=== PATIENT | female | born 1990 | race Caucasian/White ===

== ENCOUNTER 2017-02-12 18:49 | Emergency (ER) | payer SELFPAY ==
[~2017-02-12] VITALS: Ht 167.6 cm; Wt 113.4 kg
[~2017-02-12 18:49] MED LIST: ALBUTEROL0.09 MG/A1 INH; AMOXIL 875 MG875 MG PO; IBUPROFEN800 MG PO; PERCOCET 325 MG1 TA2 PO; PREDNISONE 20MG20 MG PO; TESSALON PERLE100 MG PO
[2017-02-12 19:31] LABS: ABSOLUTE BASOPHIL COUNT 0.1 /CUMM (0.0-0.2); ABSOLUTE EOSINOPHIL COUNT 0.6 /CUMM (0.0-0.7); ABSOLUTE GRANULOCYTE CT 9.4 /CUMM (1.4-6.5); ABSOLUTE LYMPH COUNT 2.6 /CUMM (1.2-3.4); ABSOLUTE MONOCYTE COUNT 0.8 /CUMM (0.10-0.60); BASOPHIL % 0.9 % (0.0-2.0); EOSINOPHIL % 4.6 % (0-5); GRANULOCYTE % 69.6 % (42.2-75.2); HEMATOCRIT 38.5 % (37-47); MEAN CORPUSCULAR HGB 27.3 PG (27.0-31.0); MEAN CORPUSCULAR HGB CONC 33.2 G/DL (33.0-37.0); MEAN CORPUSCULAR VOLUME 82.1 FL (81.0-99.0); PLATELET COUNT 284 /CUMM (130-400); WHITE BLOOD CELL COUNT 13.5 /CUMM (4.8-10.8)
--- NOTE | 2017-02-12 20:04 | ED GI/GU/ABDOMINAL COMPLAINT ---
History of Present Illness General Chief Complaint: Abdominal Pain/Flank Pain Stated Complaint: LOWER ABD PAIN Source: patient Exam Limitations: no limitations Vital Signs & Intake/Output Vital Signs & Intake/Output ED Intake and Output 02/13 0000 02/12 1200 Intake Total 0 Output Total Balance 0 Intake, Oral 0 Patient 250 lb Weight Weight Reported by Patient Measurement Method Allergies Coded Allergies: NO KNOWN ALLERGIES (10/01/12) Reconcile Medications Ciprofloxacin HCl (Cipro) 500 MG TABLET 1 TAB PO BID PRN UTI Phenazopyridine HCl (Pyridium) 100 MG TABLET 1 TAB PO TID PRN DYSURIA PLEASE NOTE THAT YOUR URINE MAY CHANGE ORANGE Triage Note: C/O LOW PELVIC/ABD PAIN WITH BURNING CRAMPING WITH URINATION W +URGENCY SINCE FRIDAY. FEELS LIKE CRAMPING LIKE A PERIOD, LAST MENSES 02/03/17. +N/-V/-D. ALSO ENDORSING SPOTTING WHICH HAS NEVER HAPPENED FOR HER. DENIES VAGINAL DISCHARGE. ALSO REPORTS BILATERAL UPPER QUADRANT PAIN, ALSO INTERMITTENT CRAMPING IN NATURE. LAST BM FRIDAY AND DIARRHEA. WENT TO A Friday THAT HAD AN OPEN BAR, UNSURE IF RELATED. Triage Nurses Notes Reviewed? yes ? N Is pt currently ? No Duration: constant Timing: recent history Quality/Severity: burning Severity Numbers: 5 Location: suprapubic Radiation: no radiation, urethral HPI: Patient is 27-year-old female who presents emergency room with a 5 day history of increased frequency of urination dysuria hematuria and lower pelvic abdominal discomfort. Patient is able to tolerate by mouth. Denies any fever chills back pain vaginal bleeding or discharge. Last menstrual period was 2 weeks ago. Denies any pain with sexual intercourse. (EMILIO ABDALLA) Past History Travel History Traveled to Any past 21 day No Medical History Any Pertinent Medical History? none Neurological: NONE EENT: NONE Cardiovascular: NONE Respiratory: NONE Gastrointestinal: NONE Hepatic: NONE Renal: NONE Musculoskeletal: NONE Psychiatric: NONE Endocrine: NONE Blood Disorders: NONE Cancer(s): NONE Surgical History Surgical History: Psychosocial History What is your primary language [place]ian Tobacco Use: Current Daily Use Daily Tobacco Use Amount/Type: => 5 Cigarettes daily ETOH Use: occasional use Illicit Drug Use: marijuana Family History Hx Contributory? No (EMILIO ABDALLA) Review of Systems Review of Systems Constitutional: Reports: no symptoms. EENTM: Reports: no symptoms. Respiratory: Reports: no symptoms. Cardiovascular: Reports: no symptoms. GI: Reports: see HPI, abdominal pain. Genitourinary: Reports: see HPI. Musculoskeletal: Reports: no symptoms. Skin: Reports: no symptoms. Neurological/Psychological: Reports: no symptoms. Hematologic/Endocrine: Reports: no symptoms. Immunologic/Allergic: Reports: no symptoms. All Other Systems: Reviewed and Negative (EMILIO ABDALLA) Physical Exam Physical Exam General Appearance: no apparent distress, obese Gastrointestinal: normal bowel sounds, soft, SUPRAPUBIC POINT TENDERNESS, NO RLQ PAIN NO PERITONEAL SIGNS, NO REBOUND Comments: Well-developed well-nourished person in no acute distress HEENT: Normal EENT exam, Neck: Supple, no lymphadenopathy, normal range of motion without pain or tenderness Back: Nontender, no CVA tenderness. Cardiovascular: Regular rate and rhythms no murmurs rubs or gallops, normal JVP Respiratory: Chest nontender. No respiratory distress.breath sounds clear to auscultation bilaterally Extremity: No edema, no calf tenderness to palpation, normal and equal pulses. Neuro: Alert oriented x3, motor sensory normal, Skin: No appreciable rash on exposed skin, skin is warm and dry. Psych: Mood and affect is normal, memory and judgment is normal. Core Measures ACS in differential dx? No Severe Sepsis Present: No Septic Shock Present: No (EMILIO ABDALLA) Progress Differential Diagnosis: appendicitis, biliary colic, bowel obstruction, colon cancer, cholecystitis, diverticulitis, ectopic , endometritis, esophageal varices, gastritis, hepatitis, hernia, hemorrhoids, ischemic bowel, inflamm bowel dis, intrauterine , kidney stone, ovarian cyst, ovarian torsion, pancreatitis, PID/cervicitis, peptic ulcer, PUD/GERD, perforated viscous, SBO, threatened AB, UTI/pyelo Plan of Care: Orders Procedure Date/time Status Add-on Test (ER Only) 02/12 2127 Active CULTURE,URINE 02/13 2008 Active Patient on initial examination has no peritoneal signs no right lower quadrant PAIN and no concerned of appendicitis. Due to history of present illness and exam findings patient will be treated for concerns of urinary tract infection. Culture is pending no concern at this time a pyelonephritis NURSING STAFF ADDED ON URINE CX AFTER PT WAS DISCHARGED. (EMILIO ABDALLA) Initial ED EKG: none (EMILIO ABDALLA) Departure Departure Disposition: HOME OR SELF CARE Condition: Stable Clinical Impression Primary Impression: UTI (urinary tract infection) Referrals: Randal LEVIN MD (PCP/Family) Additional Instructions: As discussed begin the prescription of ciprofloxacin as directed for the full course and the prescription of Pyridium for pain with urination please note that this medication of Pyridium may change the color of her urine orange. If no better on Friday follow-up with her primary care doctor. If symptoms worsen or if you develop a new concerning symptom return to emergency room. Prescription is waiting at [facility] Departure Forms: Customer Survey General Discharge Information Prescriptions: Current Visit Scripts Phenazopyridine HCl (Pyridium) 1 TAB PO TID PRN DYSURIA #6 TAB PLEASE NOTE THAT YOUR URINE MAY CHANGE ORANGE Ciprofloxacin HCl (Cipro) 1 TAB PO BID PRN UTI #20 TAB (EMILIO ABDALLA) PA/TECHNICAL PROGRAM MANAGER Co-Sign Statement Statement: ED Attending supervision documentation- [] I saw and evaluated the patient. I have also reviewed all the pertinent lab results and diagnostic results. I agree with the findings and the plan of care as documented in the PA's/TECHNICAL PROGRAM MANAGER's documentation. [X] I have reviewed the ED Record and agree with the PA's/TECHNICAL PROGRAM MANAGER's documentation. [] Additions or exceptions (if any) to the PAs/TECHNICAL PROGRAM MANAGER's note and plan are summarized below: [] (LAZ BARBER,GREG)
[2017-02-12] MEDS ORDERED: PYRIDIUM100 M1 PO (20:50)
[2017-02-12] MEDS ORDERED: CIPRO500 M1 PO (20:50)
[2017-02-12 21:03] VITALS: BP 132/76
== END 2017-02-12 21:13 ==
LOC: ERH 18:49
PROVIDERS: Emergency Medicine
DX: N39.0 Urinary tract infection, site not specified (principal); R31.9 Hematuria, unspecified
CPT/HCPCS: 81001; 81025; 87086; 87088